=== PATIENT | male | born 1940 | race Caucasian/White ===

== ENCOUNTER 2016-05-10 08:19 | Emergency (ER) | payer MEDICARE, BC ==
[~2016-05-10] VITALS: Wt 86.2 kg
[~2016-05-10 08:19] MED LIST: AMLODIPINE BESYL5 MG PO; ASPIRIN81 M1 PO; CARVEDILOL25 MG PO; CRESTOR20 M1 PO; DIGOXIN0.125 MG PO; ELIQUIS5 M1 PO; FISH OIL 1,2001 EAC1 PO; IRBESARTAN300 M1 PO; MULTI VITAMINS1 TAB PO; TIKOSYN0.5 MG PO; TIMOLOL MALEATE5 M2 OPH; TRAVATAN Z 2.52.5 ML OPH
[2016-05-10] MEDS ORDERED: CYCLOBENZAPRINE10 MG PO (09:19)
[2016-05-10] MEDS ORDERED: NAPROSYN500 MG PO (09:19)
== END 2016-05-10 10:05 | disposition home or self-care (01) ==
LOC: ED 08:19
DX: S60.221A Contusion of right hand, initial encounter (principal); Z98.890 Other specified postprocedural states; Z90.89 Acquired absence of other organs; Z79.899 Other long term (current) drug therapy; Z88.5 Allergy status to narcotic agent; Z88.8 Allergy status to other drugs, medicaments and biological substances; Z79.82 Long term (current) use of aspirin; W22.8XXA Striking against or struck by other objects, initial encounter; Y93.89 Activity, other specified; Y92.69 Other specified industrial and construction area as the place of occurrence of the external cause; Y99.9 Unspecified external cause status

== ENCOUNTER 2016-12-20 20:27 | Emergency (ER) | payer MEDICARE, BC ==
[~2016-12-20] VITALS: Ht 180.3 cm; Wt 77.1 kg
[~2016-12-20 20:27] MED LIST changes: +CYCLOBENZAPRINE10 MG PO; +NAPROSYN500 MG PO
== END 2016-12-20 21:05 | disposition home or self-care (01) ==
LOC: ED 20:27
DX: S40.862A Insect bite (nonvenomous) of left upper arm, initial encounter (principal); Z90.49 Acquired absence of other specified parts of digestive tract; Z98.890 Other specified postprocedural states; Z79.82 Long term (current) use of aspirin; Z79.899 Other long term (current) drug therapy; Z88.5 Allergy status to narcotic agent; Z88.8 Allergy status to other drugs, medicaments and biological substances; W57.XXXA Bitten or stung by nonvenomous insect and other nonvenomous arthropods, initial encounter; Y93.89 Activity, other specified; Y92.89 Other specified places as the place of occurrence of the external cause; Y99.9 Unspecified external cause status

== ENCOUNTER 2019-09-10 17:20 | Emergency (ER) | payer MEDICARE, BC ==
[~2019-09-10] VITALS: Ht 180.3 cm; Wt 74.8 kg
[2019-09-10 18:02] LABS: BASO % 0.3 % (0.0-1.0); EOS % 0.7 % (1.0-4.0); HEMATOCRIT 36.4 % (42.0-52.0); LYMPH # 1.3 10*3/uL (1.3-4.4); LYMPH % 21.5 % (27.0-41.0); MEAN CELL VOLUME 89.9 fl (80.0-94.0); MEAN CORPUSCULAR HGB 29.6 pg (27.0-31.0); MEAN PLATELET VOLUME 9.6 fl (9.6-12.3); MONO # 0.6 10*3/uL (0.1-1.0); MONO % 10.1 % (3.0-9.0); NEUT # 4.1 10*3/uL (2.3-7.9); NEUT % 67.2 % (47.0-73.0); PLATELET COUNT AUTOMATED 144 10*3/uL (130-400); RED BLOOD COUNT 4.05 10*6/uL (4.50-5.90); RED CELL DISTRI WIDTH 14.8 % (0-14.5); WHITE BLOOD COUNT 6.1 10*3/uL (4.8-10.8)
[2019-09-10 18:12] LABS: BILIRUBIN NEGATIVE (NEGATIVE); CLARITY SL CLOUDY (CLEAR); COLOR ORANGE (YELLOW); GLUCOSE NEGATIVE (NEGATIVE); KETONE TRACE (NEGATIVE)
[2019-09-10 18:13] LABS: BLOOD TRACE-INTACT (NEGATIVE); LEUKO ESTERASE NEGATIVE (NEGATIVE); NITRITE NEGATIVE (NEGATIVE); UROBILINOGEN 0.2 E.U./dl (0.2-1.0)
[2019-09-10 18:16] LABS: ALBUMIN 3.3 gm/dl (3.1-4.5); ALKALINE PHOSPHATASE 115 U/L (45-117); BUN 25 mg/dl (7-24); CHLORIDE 108 mmol/L (98-107); CREATININE 1.15 mg/dL (0.70-1.30); POTASSIUM 3.9 mmol/L (3.5-5.1); SGOT/AST 97 IU/L (3-35); SGPT/ALT 102 U/L (12-78); SODIUM 138 mmol/L (136-145); TOTAL PROTEIN 7.2 gm/dL (6.4-8.2)
[2019-09-10 18:22] LABS: RBC 0-2 rbc/hpf (0-2)
[2019-09-10 18:23] LABS: BACTERIA 1+; MUCOUS TRACE
[2019-09-10] MEDS ORDERED: ZITHROMAX250 MG PO (21:08)
== END 2019-09-10 21:15 | disposition home or self-care (01) ==
LOC: ED 17:20
PROVIDERS: Emergency Medicine
DX: R82.71 Bacteriuria (principal); R50.9 Fever, unspecified; Z20.828 Contact with and (suspected) exposure to other viral communicable diseases; Z88.6 Allergy status to analgesic agent; Z88.8 Allergy status to other drugs, medicaments and biological substances; Z79.899 Other long term (current) drug therapy; Z79.82 Long term (current) use of aspirin

== ENCOUNTER 2021-09-07 08:12 | Emergency (ER) | payer MEDICARE, BC ==
[~2021-09-07] VITALS: Wt 70.3 kg
[~2021-09-07 08:12] MED LIST changes: +ZITHROMAX250 MG PO
[2021-09-07] MEDS ORDERED: SALME (10:38)
[2021-09-07] MEDS ORDERED: FLUTIC (10:38)
[2021-09-07] MEDS ORDERED: FLUTICASONE PROPIONA (10:38)
[2021-09-07] MEDS ORDERED: CLOPIDOGREL75 MG PO (10:39)
[2021-09-07] MEDS ORDERED: Synthroid,Levo25 MCG PO (10:39)
[2021-09-07] MEDS ORDERED: LEVOTHYROXINE50 MCG PO (10:40)
[2021-09-07 11:03] LABS: BILIRUBIN Negative (Negative); BLOOD Negative (Negative); CLARITY Clear (Clear); COLOR Yellow (Yellow); GLUCOSE Negative (Negative); KETONE Negative (Negative); LEUKO ESTERASE Negative (Negative); NITRITE Negative (Negative); PH 5.5 (4.5-8.0); SPECIFIC GRAVITY 1.025 (1.001-1.030)
[2021-09-07 11:09] LABS: BASO % 0.5 % (0.0-1.0); EOS # 0.1 10*3/uL (0.0-0.4); EOS % 1.7 % (1.0-4.0); HEMATOCRIT 40.7 % (42.0-52.0); LYMPH # 2.6 10*3/uL (1.3-4.4); MEAN CELL VOLUME 92.1 fl (80.0-94.0); MEAN CORPUSCULAR HGB 29.9 pg (27.0-31.0); MEAN CORPUSCULAR HGB CONC 32.4 g/dl (33.0-37.0); MEAN PLATELET VOLUME 9.9 fl (9.6-12.3); MONO # 0.6 10*3/uL (0.1-1.0); MONO % 7.6 % (3.0-9.0); NEUT # 4.8 10*3/uL (2.3-7.9); PLATELET COUNT AUTOMATED 164 10*3/uL (130-400); RED BLOOD COUNT 4.42 10*6/uL (4.50-5.90); RED CELL DISTRI WIDTH 18.8 % (0-14.5); WHITE BLOOD COUNT 8.2 10*3/uL (4.8-10.8)
[2021-09-07 11:22] LABS: BACTERIA 2+; MUCOUS 1+; RBC 0-2 rbc/hpf (0-2); WBC 0-2 wbc/hpf (0-5)
[2021-09-07 11:24] LABS: ALKALINE PHOSPHATASE 117 U/L (45-117); BUN 24 mg/dl (7-24); CHLORIDE 110 mmol/L (98-107); CREATININE 0.99 mg/dL (0.70-1.30); LIPASE 73 U/L (73-393); POTASSIUM 3.7 mmol/L (3.5-5.1); SGOT/AST 21 IU/L (3-35); SGPT/ALT 37 U/L (12-78); SODIUM 140 mmol/L (136-145); TOTAL PROTEIN 7.6 gm/dL (6.4-8.2)
== END 2021-09-07 14:16 | disposition home or self-care (01) ==
LOC: ED 08:12
PROVIDERS: Emergency Medicine
DX: N23 Unspecified renal colic (principal); K80.80 Other cholelithiasis without obstruction; Z88.8 Allergy status to other drugs, medicaments and biological substances; Z79.899 Other long term (current) drug therapy; Z90.89 Acquired absence of other organs; Z98.890 Other specified postprocedural states

== ENCOUNTER 2023-11-18 13:53 | Emergency (ER) | payer MEDICARE, BC ==
[~2023-11-18] VITALS: Wt 68.0 kg
[~2023-11-18 13:53] MED LIST changes: +CLOPIDOGREL75 MG PO; +FLUTIC; +FLUTICASONE PROPIONA; +LEVOTHYROXINE50 MCG PO; +SALME; +Synthroid,Levo25 MCG PO
[2023-11-18] MEDS ORDERED: ASPIRIN CHEWABL81 MG PO (14:22)
[2023-11-18] MEDS ORDERED: Tdap Vaccine 0.5 ML SYR (Adult Vaccine) IM ONE (15:45)
[2023-11-18] MEDS ORDERED: ceFAZolin sodium 1 GM VIAL IM ONE (17:30)
[2023-11-18] MEDS ORDERED: Water, Sterile 10 ML VIAL ONE (17:56)
== END 2023-11-18 20:08 | disposition short-term general hospital (02) ==
LOC: ED 13:53
DX: S61.012A Laceration without foreign body of left thumb without damage to nail, initial encounter (principal); W27.0XXA Contact with workbench tool, initial encounter; Y93.89 Activity, other specified; Y92.89 Other specified places as the place of occurrence of the external cause; Y99.8 Other external cause status; Z88.5 Allergy status to narcotic agent; Z88.8 Allergy status to other drugs, medicaments and biological substances; Z95.5 Presence of coronary angioplasty implant and graft; Z90.49 Acquired absence of other specified parts of digestive tract; Z98.890 Other specified postprocedural states